=== PATIENT | male | born 1945 | race Caucasian/White ===

== ENCOUNTER → 2018-04-13 | Outpatient (CLI) | payer OTHER ==
[~2018-04-13] MED LIST: ALFU10TA3 PO; ASPI81TA50 PO; HYDR25TA9 PO; SIMV40TA PO; TELM40TA PO
[2018-04-13 15:26] LABS: BASO % 0 % (0-3); EOS # 0.1 x10^3/uL (0.0-0.7); EOS % 2 % (0-3); HEMATOCRIT 40.9 % (39.0-53.0); HEMOGLOBIN 14.2 g/dL (13.0-17.5); LYMPH # 1.3 x10^3/uL (1.0-4.8); LYMPH % 22 % (24-48); MEAN CORPUSCULAR HEMOGLOBIN 34 pg (25-35); MEAN CORPUSCULAR HGB CONC 35 g/dL (31-37); MEAN CORPUSCULAR VOLUME 99 fL (79-100); MONO # 0.8 x10^3/uL (0.0-1.1); MONO % 14 % (0-9); NEUT # 3.7 x10^3uL (1.8-7.7); NEUT % 63 % (31-73); PLATELET COUNT 206 x10^3/uL (140-400); RED BLOOD COUNT 4.15 x10^6/uL (4.30-5.70); RED CELL DISTRIBUTION WIDTH 12.9 % (11.5-14.5); WHITE BLOOD COUNT 5.9 x10^3/uL (4.0-11.0)
[2018-04-13 15:46] LABS: CLARITY,URINE CLEAR; COLOR,URINE YELLOW
[2018-04-13 15:47] LABS: BACTERIA,URINE 0 /HPF (0-FEW); BILIRUBIN,URINE NEG (NEG); GLUCOSE,URINE NEG (NEG); NITRITE,URINE NEG (NEG); RBC,URINE 0 /HPF (0-2); SQUAMOUS EPITHELIAL CELL,UR OCC /LPF; UROBILINOGEN,URINE 2 mg/dL (0.2 mg/dL); WBC,URINE 0 /HPF (0-4)
== END | disposition home or self-care (01) ==
LOC: LAB 14:10
PROVIDERS: ATTEND Anesthesiology Pain Medicine
DX: Z01.818 Encounter for other preprocedural examination (principal)
CPT/HCPCS: 36415; 81001; 85025

== ENCOUNTER → 2018-04-21 | Day surgery (SDC) | payer OTHER ==
[~2018-04-21] MED LIST changes: +BACITRACIN 50,000 UNIT VIAL. ONE; +BUPIVACAINE MPF 0.5% 30 ML VIAL. ONE; +CEPH-264 PO; +DEXAMETHASONE SOD PHOS 4 MG/ML VIAL ONE; +FAMOTIDINE 20 MG/2 ML VIAL ONE; +HYDR-2762 PO; +IV RINGERS SOLUTION,LACTATED 1,000 ML IV SCH; +LIDOCAINE 1% PF 2 ML VIAL. ID PRN; +LIDOCAINE 1% PF 30 ML VIAL. ONE; +MIDAZOLAM HCL PF 2 MG/2 ML VIAL. ONE; +ONDANSETRON PF 4 MG/2 ML VIAL. IV PRN; +ONDANSETRON PF 4 MG/2 ML VIAL. ONE; +PROPOFOL 10,000 MCG/ML (20ML) VIAL IV ONE; +PROPOFOL 40 ML IV ONE; +TIOT18CA IH; +ceFAZolin 2GM PREMIX 2 GM/50 ML BAG IV ONE
[2018-04-21 10:04] VITALS: BP 119/71
== END ==
LOC: SURG 07:05
PROVIDERS: ATTEND Anesthesiology Pain Medicine
DX: M51.16 Intervertebral disc disorders with radiculopathy, lumbar region (principal); I10 Essential (primary) hypertension; Z98.890 Other specified postprocedural states; J44.9 Chronic obstructive pulmonary disease, unspecified; Z87.39 Personal history of other diseases of the musculoskeletal system and connective tissue; Z79.82 Long term (current) use of aspirin; Z72.89 Other problems related to lifestyle; Z87.891 Personal history of nicotine dependence
CPT/HCPCS: 62380; J0690; J1100; J2001; J2250; J2405; J2704; J3010; J3490; J7120; S0028

== ENCOUNTER → 2018-09-01 | Outpatient (CLI) | payer OTHER ==
[2018-04-21 10:04] VITALS: BP 119/71
[~2018-09-01] MED LIST changes: -BACITRACIN 50,000 UNIT VIAL. ONE; -DEXAMETHASONE SOD PHOS 4 MG/ML VIAL ONE; -FAMOTIDINE 20 MG/2 ML VIAL ONE; -IV RINGERS SOLUTION,LACTATED 1,000 ML IV SCH; -LIDOCAINE 1% PF 2 ML VIAL. ID PRN; -MIDAZOLAM HCL PF 2 MG/2 ML VIAL. ONE; -ONDANSETRON PF 4 MG/2 ML VIAL. IV PRN; -ONDANSETRON PF 4 MG/2 ML VIAL. ONE; -PROPOFOL 10,000 MCG/ML (20ML) VIAL IV ONE; -PROPOFOL 40 ML IV ONE; -ceFAZolin 2GM PREMIX 2 GM/50 ML BAG IV ONE
== END | disposition home or self-care (01) ==
LOC: SURG 08:36
PROVIDERS: ATTEND Anesthesiology Pain Medicine
DX: M47.816 Spondylosis without myelopathy or radiculopathy, lumbar region (principal); G89.29 Other chronic pain; I10 Essential (primary) hypertension; G47.33 Obstructive sleep apnea (adult) (pediatric); M19.90 Unspecified osteoarthritis, unspecified site; Z79.82 Long term (current) use of aspirin; Z79.899 Other long term (current) drug therapy
CPT/HCPCS: 64493; 64494; J2001; J3490

== ENCOUNTER → 2019-01-05 | Outpatient (CLI) | payer OTHER ==
[2018-04-21 10:04] VITALS: BP 119/71
[~2019-01-05] MED LIST changes: +HYDR-2145 PO; -HYDR-2762 PO; +HYDR-2765 PO; -HYDR25TA9 PO; +IOHEXOL 300 MG/ML 50 ML VIAL. ONE
== END | disposition home or self-care (01) ==
LOC: SURG 09:06
PROVIDERS: ATTEND Anesthesiology Pain Medicine
DX: M16.11 Unilateral primary osteoarthritis, right hip (principal); I10 Essential (primary) hypertension; J44.9 Chronic obstructive pulmonary disease, unspecified; G47.30 Sleep apnea, unspecified; Z72.89 Other problems related to lifestyle; M54.16 Radiculopathy, lumbar region; Z98.890 Other specified postprocedural states; Z79.899 Other long term (current) drug therapy
CPT/HCPCS: 20610; 77002; J2001; J3490; Q9967; 20611